=== PATIENT | male | born 1985 | race Caucasian/White ===

== ENCOUNTER 2017-03-27 23:55 | Emergency (ER) | payer BC ==
[2017-03-28 00:16] VITALS: RESP 18
[2017-03-28] MEDS ORDERED: DIPH,PERTUS(ACELL)TETVAC-LF 0.5 ML VIAL IM ONE (00:36)
[2017-03-28] MEDS ORDERED: AMOXIC-POT CLAV 875-125MG 1 EACH TAB PO STA (00:38)
--- NOTE | 2017-03-28 00:41 | ED ---
Animal Bite HPI - General Chief Complaint: Animal Bite Stated Complaint: dog bite Time Seen by Provider: 03/28/17 00:09 Source: patient, RN notes reviewed Mode of arrival: ambulatory Limitations: no limitations - History of Present Illness Initial Comments: Patient is a 31-year-old male presents emergency room for evaluation of dog bite. Patient states he has 2 dogs and was trying to break them up from fighting. Patient states he got in the middle and one of them bit his left hand. Patient states he has a laceration on his fourth finger and a few puncture bites over his hand. Patient states he's not sure when his last tetanus vaccine was. Patient denies any ALLERGIES to any antibiotics. Patient denies numbness or tingling in his fingers. Patient denies taking blood thinners. Patient denies any other injuries during incident. Patient states that his dogs are up-to-date on the rabies vaccine. - Related Data Previous Rx's Medication Instructions Recorded Amoxicillin/Potassium Clav 1 each PO Q12HR #20 tab 03/28/17 [Augmentin 875-125 Tablet] Allergies Allergy/AdvReac Type Severity Reaction Status Date / Time No Known Allergies Allergy Verified 03/28/17 00:10 Review of Systems ROS Statement: Those systems with pertinent positive or pertinent negative responses have been documented in the HPI. ROS Other: All systems not noted in ROS Statement are negative. Past Medical History Past Medical History: No Reported History History of Any Multi-Drug Resistant Organisms: None Reported Past Surgical History: Orthopedic Surgery Additional Past Surgical History / Comment(s): Left knee surgery Past Psychological History: No Psychological Hx Reported Smoking Status: Former smoker Past Alcohol Use History: None Reported Past Drug Use History: None Reported General Exam - General Exam Comments Initial Comments: Sitting in exam room, no acute distress. Limitations: no limitations General appearance: alert, in no apparent distress Head exam: Present: atraumatic, normocephalic, normal inspection Eye exam: Present: normal appearance ENT exam: Present: normal exam Neck exam: Present: normal inspection Respiratory exam: Present: normal lung sounds bilaterally. Absent: respiratory distress Cardiovascular Exam: Present: regular rate, normal rhythm, normal heart sounds Left Hand Wrist exam: Present: full ROM, laceration ( 2 cm laceration over the dorsal proximal phalanx of the fourth finger. Multiple puncture wounds over the left hand.). Absent: tenderness Neuro motor exam: Present: wrist extension intact, thumb opposition intact, thumb IP flexion intact, thumb adduction intact, fingers 2-5 abduction intact Vascular: Present: normal capillary refill ( capillary refill less than 2 seconds), radial pulse (2+), ulnar pulse (2+) Back exam: Present: normal inspection Neurological exam: Present: alert, oriented X3, CN II-XII intact, normal gait Psychiatric exam: Present: normal affect, normal mood Skin exam: Present: warm, dry. Absent: rash Course Vital Signs 03/28/17 03/28/17 00:08 01:53 Temperature 98.1 F 97.9 F Pulse Rate 74 81 Respiratory 18 18 Rate Blood Pressure 128/72 132/69 O2 Sat by Pulse 98 98 Oximetry Procedures - Laceration Laceration #1 Consent Obtained: verbal consent Indication: laceration Site: other (left fourth digit) Size (cm): 2 Description: linear Depth: simple, single layer Anesthetic Used: lidocaine 1% Anesthesia Technique: local infiltration Amount (mls): 2 Pre-repair: irrigated extensively Type of Sutures: nylon Size of Sutures: 5-0 Number of Sutures: 2 Technique: simple, interrupted Patient Tolerated Procedure: well, no complications Medical Decision Making - Medical Decision Making patient is a 31-year-old male since emergency room for evaluation of dog bite. Patient did have a 2 cm laceration over her left fourth proximal phalanx. Laceration was open. I did loosely close laceration with 2 sutures. I did explain to patient a high probability of increased infection. Patient was updated on his tetanus vaccine and placed on Augmentin. Advised patient to return for any worsening symptoms or swelling from the laceration site. Patient states he understands everything that was discussed with him. Case discussed with Dr. Crespo. Disposition Clinical Impression: Dog bite Disposition: HOME SELF-CARE Condition: Good Instructions: Animal Bite (ED), Care For Your Stitches (ED), Laceration (ED) Additional Instructions: Keep suture area clean and dry. Please return for any signs of infection or drainage from the suture area. Take antibiotics as directed. Take Tylenol or Motrin as needed for pain. Please follow-up with primary care provider for reevaluation on Wednesday. Please return in 7 days for suture removal. Prescriptions: Amoxicillin/Potassium Clav [Augmentin 875-125 Tablet] 1 each PO Q12HR #20 tab Referrals: Dwight Basurto DO [Primary Care Provider] - 1-2 days Time of Disposition: 01:12
[2017-03-28 01:54] VITALS: BP 132/69; PULSE 81; TEMP 97.9
== END 2017-03-28 01:54 | disposition home or self-care (01) ==
LOC: EC 23:55
DX: S61.215A Laceration without foreign body of left ring finger without damage to nail, initial encounter (principal); Z23 Encounter for immunization; Z87.891 Personal history of nicotine dependence; W54.0XXA Bitten by dog, initial encounter
CPT/HCPCS: 12001; 90471; 90715; 99282

== ENCOUNTER → 2017-03-29 | Outpatient (CLI) | payer BC ==
--- NOTE | 2017-03-30 10:51 | XR ---
Left hand HISTORY: Swelling after dog bite 3 views of the left hand, no comparisons Bone mineralization, joint spaces and alignment are maintained. Small metallic density is present at the thenar eminence level on the frontal view measuring only 1 to 2 mm. Difficult to exclude a radiop aque foreign body. Soft tissue swelling is suspected. IMPRESSION: No fracture or dislocation. Correlate for cellulitis, abscess, difficult to exclude a sma ll foreign body as described. Consider follow-up to exclude artifact.
== END | disposition home or self-care (01) ==
LOC: RADXRYALE 15:09
PROVIDERS: ATTEND Physician Assistant Medical
DX: S61.259A Open bite of unspecified finger without damage to nail, initial encounter (principal); W54.0XXA Bitten by dog, initial encounter; L03.114 Cellulitis of left upper limb

== ENCOUNTER → 2017-06-10 | Outpatient (CLI) | payer BC ==
--- NOTE | 2017-06-10 13:19 | MR ---
EXAMINATION TYPE: MR foot RT wo con DATE OF EXAM: 06/10/2017 COMPARISON: NONE HISTORY: Lateral rt foot pain x 7 months, Injury when the patient twisted his ankle. Standard multiplanar, multisequence MRI departmental protocol Multiplanar, multisequence images of the right foot were acquired. Diffusion weighted imaging was per formed. FINDINGS: There is a short segment split tear of the peroneus brevis beginning just below the fibula and extend ing approximately 1.5 cm. Just distal to this there is a focal area of thickening and intermediate si gnal within the peroneus longus measuring 1.5 cm in length with minimal amount of peritendinous fluid . The anterior talofibular ligament and posterior talofibular ligament as well as the deltoid ligament appear intact. Calcaneofibular ligament is also intact as is the Lisfranc ligament. There is no abnormal bone marrow signal to suggest osseous contusion or occult fracture. The sinus ta rsi maintains a normal fatty signal. The talar dome is intact. Ankle mortise is maintained. IMPRESSION: 1. Short segment split tear of the right peroneus brevis. 2. Focal tenosynovitis of the right peroneus longus just distal to the tear of the peroneus brevis. 3. No abnormal bone marrow signal to suggest occult fracture.
== END | disposition home or self-care (01) ==
LOC: RADMRIMAIN 12:04
PROVIDERS: ATTEND Physician Assistant Medical
DX: S86.321A Laceration of muscle(s) and tendon(s) of peroneal muscle group at lower leg level, right leg, initial encounter (principal); M65.861 Other synovitis and tenosynovitis, right lower leg; M79.671 Pain in right foot

== ENCOUNTER 2019-03-02 13:45 | Emergency (ER) | payer BC, OTHER ==
[2019-03-02 14:13] VITALS: BP 137/85; RESP 18; TEMP 98.1
[2019-03-02] MEDS ORDERED: LIDOCAINE 1% INJ 10MG/ML (20 ML MDV) SQ STA (14:45)
[2019-03-02] MEDS ORDERED: DIPH,PERTUS(ACELL)TETVAC-LF 0.5 ML VIAL IM ONE (14:46)
--- NOTE | 2019-03-02 14:47 | ED ---
General Adult HPI - General Chief complaint: Head Injury Stated complaint: head injury-[facility] Time Seen by Provider: 03/02/19 14:15 Source: patient, RN notes reviewed, old records reviewed Mode of arrival: ambulatory Limitations: no limitations - History of Present Illness Initial comments: 33-year-old male patient with no pertinent past medical history presents to ED after sustaining a laceration on the scalp. Patient reports that while at work he hit his head on a piece of exposed metal, causing laceration. Patient denies any use of blood thinners. Patient has a loss of consciousness. Patient denies any headache, changes in vision, altered mental status. Patient denies any pain in cervical spine. Patient denies other complaints. Systemic: Pt denies fatigue, myalgia, fever/chills, rash. Pt denies weakness, night sweats, weight loss. Neuro: Pt denies headache, visual disturbances, syncope or pre-syncope. HEENT: Pt denies ocular discharge or irritation, otalgia, rhinorrhea, pharyngitis or notable lymphadenopathy. Cardiopulmonary: Pt denies chest pain, SOB, heart palpitations, dyspnea on exertion. Abdominal/GI: Pt denies abdominal pain, n/v/d. : Pt denies dysuria, burning w/ urination, frequency/urgency. Denies new onset urinary or bowel incontinence. MSK: Pt denies myalgia, loss of strength or function in extremities. Neuro: Pt denies new onset weakness, paresthesias. - Related Data Previous Rx's Medication Instructions Recorded Amoxicillin/Potassium Clav 1 each PO Q12HR #20 tab 03/28/17 [Augmentin 875-125 Tablet] Allergies Allergy/AdvReac Type Severity Reaction Status Date / Time No Known Allergies Allergy Verified 03/02/19 14:13 Review of Systems ROS Statement: Those systems with pertinent positive or pertinent negative responses have been documented in the HPI. ROS Other: All systems not noted in ROS Statement are negative. Past Medical History Past Medical History: No Reported History History of Any Multi-Drug Resistant Organisms: None Reported Past Surgical History: Orthopedic Surgery Additional Past Surgical History / Comment(s): Left knee surgery Past Psychological History: No Psychological Hx Reported Smoking Status: Former smoker Past Alcohol Use History: None Reported Past Drug Use History: None Reported General Exam - General Exam Comments Initial Comments: Constitutional: NAD, AOX3, Pt has pleasant affect. HEENT: NC/AT, trachea midline, neck supple, no lymphadenopathy. Posterior pharynx non erythematous, without exudates. External ears appear normal, without discharge. Mucous membranes moist. Eyes PERRLA, EOM intact. There is no scleral icterus. No pallor noted. Cardiopulmonary: RRR, no murmurs, rubs or gallops, no JVD noted. Lungs CTAB in anterior and posterior wilkerson. No peripheral edema. Abdominal exam: Abdomen soft and non-distended. Abdomen non-tender to palpation in all 4 quadrants. Bowel sounds active in LLQ. No hepatosplenomegaly. No ecchymosis Neuro: CN II-XII intact. No nuchal rigidity. MSK: 6cm laceration noted at apex of skull. Vigorously irrigated with 1 L normal saline. No osseous involvement, no foreign body. Approximated with 10 simple meera. No posterior calf tenderness bilaterally, homans sign negative bilaterally. Posterior tibialis and radial pulse +2 bilaterally. Sensation intact in upper and lower extremities. Full active ROM in upper and lower extremities, 5/5 stregnth. Limitations: no limitations Course Vital Signs 03/02/19 14:10 Temperature 98.1 F Pulse Rate 89 Respiratory 18 Rate Blood Pressure 137/85 O2 Sat by Pulse 97 Oximetry Procedures - Laceration Laceration #1 Consent Obtained: verbal consent Indication: laceration Site: scalp Size (cm): 6 Description: linear Depth: simple, single layer Anesthetic Used: lidocaine 1% Anesthesia Technique: local infiltration Amount (mls): 6 Pre-repair: wound explored, irrigated extensively (1L NS ), deep structures intact (no osseous involvement or foreign body ) Type of Sutures: other (staple) Number of Sutures: 10 Patient Tolerated Procedure: well, no complications Medical Decision Making - Medical Decision Making 33-year-old male patient with no pertinent past medical history presents to ED after sustaining a laceration on the scalp. Patient reports that while at work he hit his head on a piece of exposed metal, causing laceration. Patient denies any use of blood thinners. Patient has a loss of consciousness. Patient denies any headache, changes in vision, altered mental status. Patient denies any pain in cervical spine. Patient denies other complaints. Pt VSS, afebrile. Physical exam displayed: 6cm laceration noted at apex of skull. Vigorously irrigated with 1 L normal saline. No osseous involvement, no foreign body. Approximated with 10 meera. Patient tetanus updated. Patient monitor for signs symptoms of infection. Pt will return in 7 days for removal. Patient will return to ER if condition worsens in anyawy. Case discussed with Dr. Godfrey. Disposition Clinical Impression: Laceration Disposition: HOME SELF-CARE Condition: Stable Instructions (If sedation given, give patient instructions): Laceration (ED) Additional Instructions: Patient to adhere to previously discussed treatment plan and will take medication(s) as directed. Patient to follow up with PCP in 1-2 days. Patient to return to ED if symptoms do not improve. Please return for suture removal: Hand: 7-10 days Face: 5 days Chest/abdomen: 12-14 days Extremities: 7-10 days Scalp: 7 days Eyebrow: 5-7 days Foot/sole: 12-14 days Please monitor for signs and symptoms of infection including: redness, warmth, drainage, discharge. Please return to ED if these signs or symptoms occur, new signs or symptoms develop or if condition worsens in anyway. Is patient prescribed a controlled substance at d/c from ED?: No Referrals: Dwight Basurto DO [Primary Care Provider] - 1-2 days
[2019-03-02 15:45] VITALS: PULSE 78
== END 2019-03-02 15:42 | disposition home or self-care (01) ==
LOC: EC 13:45
DX: S01.01XA Laceration without foreign body of scalp, initial encounter (principal); Z23 Encounter for immunization; Z87.891 Personal history of nicotine dependence; W22.8XXA Striking against or struck by other objects, initial encounter; Y92.69 Other specified industrial and construction area as the place of occurrence of the external cause; Y99.0 Civilian activity done for income or pay
CPT/HCPCS: 90715; 99283; 12002; 90471; J2001

== ENCOUNTER → 2019-05-31 | Outpatient (CLI) | payer OTHER ==
--- NOTE | 2019-06-01 07:18 | XR ---
EXAMINATION TYPE: XR finger RT DATE OF EXAM: 05/31/2019 COMPARISON: NONE HISTORY: Right thumb pain and cellulitis after injury. TECHNIQUE: 2 views of the right thumb are obtained. FINDINGS: No laceration of the right thumb/first digit seen. No radiopaque foreign body. Mild soft ti ssue swelling distally. Osseous mineralization is within normal limits. No dislocation. IMPRESSION: Mild soft tissue swelling of the distal right first digit/thumb without radiopaque foreig n body, osseous laceration, nor acute fracture or dislocation.
== END | disposition home or self-care (01) ==
LOC: RADXRYALE 16:13
PROVIDERS: ATTEND Physician Assistant Medical
DX: L03.113 Cellulitis of right upper limb (principal)

== ENCOUNTER → 2019-11-22 | Outpatient (CLI) | payer MEDICAID ==
[2019-11-22 16:06] LABS: T4, Free (Free Thyroxine) 1.1 ng/dL (0.80-1.80)
[2019-11-22 18:03] LABS: Thyroid Peroxidase Antibodies 31.5 U/mL (0.0-60.0)
== END | disposition home or self-care (01) ==
LOC: LABWHC1 08:56
PROVIDERS: ATTEND Internal Medicine Endocrinology, Diabetes & Metabolism
DX: E06.3 Autoimmune thyroiditis (principal)
CPT/HCPCS: 36415; 84439; 84443; 86376; 86800

== ENCOUNTER 2020-08-02 09:48 | Day surgery (SDC) | payer MEDICAID ==
[2020-07-31 15:07] VITALS: BMI 48.8
--- NOTE | 2020-08-01 10:56 | HP ---
HISTORY AND PHYSICAL CHIEF COMPLAINT: Left hand pain and numbness. 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 It has worsened recently. He is having a difficult time with gripping and grasping. He is having significant night symptoms. He has tried bracing and injections along with medications over the past several years. PAST MEDICAL HISTORY: Significant for hypertension. PAST SURGICAL HISTORY: Negative. CURRENT MEDICATIONS: Losartan. FAMILY HISTORY: Significant cancer, diabetes, and diabetes. SOCIAL HISTORY: Significant for previous tobacco use; however, he quit in 2008. 16 POINT REVIEW OF SYSTEMS: Otherwise reviewed and is noncontributory. PHYSICAL EXAMINATION: On examination, the patient is approximately 5 foot 11, 350 pounds of endomorphic habitus. HEENT: Exam is nonfocal. NECK: Supple. He is nontender about the left shoulder and elbow. On examination of his left wrist he has a positive carpal tunnel compression test. Tinel's is positive over the carpal canal. Adductor pollicis brevis strength 4+/5. Light touch is distally intact. Intrinsics are 5/5. EMG report left upper extremity shows median motor latency at the carpal canal 5.3, sensory latency non recordable. IMPRESSION: Left carpal tunnel [id number]. RECOMMENDATIONS: I talked to the patient at length regarding his condition along with treatment options. At this point, he is quite symptomatic despite extensive previous conservative measures. After thorough discussion, he opts to proceed with surgery. We will plan to proceed with left carpal tunnel release utilizing local anesthetic and IV sedation as an outpatient procedure. Risks and benefits were discussed at length in layman's terms. MMODL / IJN: [id number] /
[~2020-08-02 09:48] MED LIST: DEXAMETHASONE SOD PHOSPHATE 10 MG/ML 1 ML VIAL IV ONE; HYDROmorphone 0.5 MG/0.5 ML SYRINGE IVP PRN; LACTATED RINGERS 1,000 ML IV SCH; LIDOCAINE 1% (10MG/ML) FOR IV START INTRADERMA PRN; MIDAZOLAM 2 MG/2 ML VIAL IV PRN; ONDANSETRON 4 MG/2 ML VIAL IVP ONE; ceFAZolin 3 GM in SODIUM CHLORIDE 0.9% 100 ML IVPB ONE
[2020-08-02 10:37] VITALS: RESP 16; TEMP 98.2
[2020-08-02] MEDS ORDERED: BUPIVACAINE (PF) 0.25% 30 ML VIAL SQ ONE (11:21)
--- NOTE | 2020-08-02 11:51 | P.OP ---
Date of Procedure: 08/02/20 Preoperative Diagnosis: Left carpal tunnel syndrome Postoperative Diagnosis: Same Procedure(s) Performed: Left carpal tunnel release Anesthesia: MAC, local Surgeon: Robert Rahman Estimated Blood Loss (ml): 1 Pathology: none sent Condition: stable Disposition: PACU Indications for Procedure: The patient's a 34-year-old male who presents with progressive left hand pain and numbness secondary to carpal tunnel syndrome despite conservative measures. A discussion of the risks and benefits of operative intervention versus continued conservative measures was made with patient. He opted to proceed with surgery. Operative risks to include infection, neurovascular injury, develo pment of blood clots, possible incomplete resolution of symptoms, possible recurrence of symptoms and need for subsequent procedures was discussed. Informed consent was obtained. Operative Findings: As below Description of Procedure: The patient was brought to the operating room, and after induction of IV sedation the left upper extremity was prepped and draped in normal fashion. The proposed incision site was outlined skin marker in line with the radial aspect the fourth ray extending from the volar wrist crease distally 2-1/2 cm. One quarter percent plain Marcaine was injected into the proposed incision site. 9 mL was utilized. The tourniquet was inflated to 250 mmHg. The skin incision was then made. The skin was incised sharply. Subcutaneous tissues were divided sharply the superficial palmar fascia was identified and split in line with the skin incision. The transverse carpal ligament was identified and transected u nder direct visualization distally to level the palmar fat pad. Proximal was taken level of the volar wrist crease. A plane above and below the transverse carpal ligament was then bluntly developed with tenotomies. The confluence of the distal forearm fascia and the transverse carpal ligament was then transected under direct visualization proximally with the tines pointed in the ulnar direction. I felt this was adequate proximal release. Neural lysis was not performed. The wound was irrigated with normal saline. Electrocautery was used for hemostasis. The skin was reapproximated with simple 3-0 nylon sutures. A sterile dressing was applied. The tourniquet was deflated with less than 15 minutes total tourniquet time. Patient was awoken from sedation and transferred to the recovery room in good condition. Blood loss was estimated 1 mL. No complications were incurred. Sponge and needle counts were correct at the end the case.
[2020-08-02 12:21] VITALS: BP 108/70; PULSE 68
== END 2020-08-02 12:24 | disposition home or self-care (01) ==
LOC: OR 09:48
PROVIDERS: ATTEND Orthopaedic Surgery
DX: G56.02 Carpal tunnel syndrome, left upper limb (principal); I10 Essential (primary) hypertension; Z87.891 Personal history of nicotine dependence; Z80.9 Family history of malignant neoplasm, unspecified; Z83.3 Family history of diabetes mellitus; Z98.890 Other specified postprocedural states; Z79.899 Other long term (current) drug therapy
CPT/HCPCS: 64721; J1100; J0690; J2405

== ENCOUNTER 2020-09-20 10:13 | Day surgery (SDC) | payer MEDICAID ==
[2020-09-19 08:25] VITALS: BMI 47.4
--- NOTE | 2020-09-19 09:17 | HP ---
HISTORY AND PHYSICAL CHIEF COMPLAINT: Right hand pain and numbness. 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 It has worsened recently. He is having significant night symptoms. He has tried bracing and injections along with medications. PAST MEDICAL HISTORY: Significant for hypertension. PAST SURGICAL HISTORY: Significant for recent left carpal tunnel release. CURRENT MEDICATIONS: Losartan. He denies drug allergies. FAMILY HISTORY: Significant for cancer and diabetes. SOCIAL HISTORY: Significant for previous tobacco use. 16 POINT REVIEW OF SYSTEMS: Otherwise reviewed and is noncontributory. PHYSICAL EXAMINATION: On examination, the patient is approximately 5 foot 11, 350 pounds of endomorphic habitus. HEENT: Exam is nonfocal. NECK: Supple. He is nontender about the right shoulder and elbow. On examination of his right wrist, he has a positive Tinel's over the carpal canal. Adductor pollicis brevis strength is 5/5. No significant thenar wasting is noted. Carpal tunnel compression test is positive. EMG report right upper extremity shows evidence of right median motor latency of the carpal canal 4.3. IMPRESSION: Right carpal tunnel syndrome-symptomatic. RECOMMENDATIONS: I talked to the patient at length regarding his condition and treatment options. At this point, he remained symptomatic despite extensive previous conservative measures. After thorough discussion, he opts to proceed with surgery. We will plan to proceed with right carpal tunnel release utilizing local anesthetic and IV sedation as an outpatient procedure. Risks and benefits were discussed at length in layman's terms. MMODL / IJN: [id number] /
[~2020-09-20 10:13] MED LIST changes: -DEXAMETHASONE SOD PHOSPHATE 10 MG/ML 1 ML VIAL IV ONE; +DEXAMETHASONE SOD PHOSPHATE 4 MG/ML 1 ML VIAL IV ONE; -MIDAZOLAM 2 MG/2 ML VIAL IV PRN; -ONDANSETRON 4 MG/2 ML VIAL IVP ONE
[2020-09-20] MEDS ORDERED: LACTATED RINGERS 1,000 ML IV ONE ×2 (10:28)
[2020-09-20] MEDS ORDERED: ONDANSETRON 4 MG/2 ML VIAL ONE (10:38)
[2020-09-20 10:40] VITALS: TEMP 98.2
[2020-09-20] MEDS ORDERED: ONDANSETRON 4 MG/2 ML VIAL IVP ONE (10:40)
[2020-09-20] MEDS ORDERED: fentaNYL (PF) 50 MCG/ML 2 ML AMP ONE (10:56)
[2020-09-20] MEDS ORDERED: MIDAZOLAM 2 MG/2 ML VIAL ONE (10:56)
[2020-09-20] MEDS ORDERED: KETAMINE 10 MG/ML 20 ML VIAL ONE (10:56)
[2020-09-20] MEDS ORDERED: GLYCOPYRROLATE 0.2 MG/ML 2 ML VIAL ONE (10:56)
[2020-09-20] MEDS ORDERED: PROPOFOL 10 MG/ML 20 ML VIAL IV ONE (10:56)
[2020-09-20] MEDS ORDERED: BUPIVACAINE (PF) 0.25% 30 ML VIAL SQ ONE ×3 (11:10→11:11)
--- NOTE | 2020-09-20 11:33 | P.OP ---
Date of Procedure: 09/20/20 Preoperative Diagnosis: Right carpal tunnel syndromesymptomatic Postoperative Diagnosis: Same Procedure(s) Performed: Right carpal tunnel release Anesthesia: MAC, local Surgeon: Robert Rahman Estimated Blood Loss (ml): 2 Pathology: none sent Condition: stable Disposition: PACU Indications for Procedure: The patient is a 34-year-old male who presents progressive right hand pain and numbness secondary to carpal tunnel syndrome this right conservative measures. A discussion of the risks and benefits of operative intervention versus continued conservative measures was made with patient. He opted to proceed with surgery. Operative risks to include infection, neurovascular injury, possible development of reflex sympathetic dystrophy, possible recurrence, possible need for subsequent procedures was discussed. Informed consent was obtained. Operative Findings: As below Description of Procedure: The patient was brought to the operating room, and after induction of IV sedation the right upper extremity was prepped and draped in normal fashion. The proposed incision site was outlined skin marker in line with the radial aspect the fourth ray extending from the volar wrist crease distally 2-1/2 cm. One quarter percent plain Marcaine was injected into the proposed incision site. 9 mL was utilized. The tourniquet was inflated to 250 mmHg. The skin incision was then made. The skin was incised sharply. Subcutaneous tissues were divided sharply the superficial palmar fascia was identified and split in line with the skin incision. The transverse carpal ligament was identified and transected under direct visualization distally to level the palmar fat pad. Proximal was taken level of the volar wrist crease. A plane above and below the transverse carpal ligament was then bluntly developed with tenotomies. The confluence of the distal forearm fascia and the transverse carpal ligament was then transected under direct visualization proximally with the tines pointed in the ulnar direction. I felt this was adequate proximal release. Neural lysis was not performed. The wound was irrigated with normal saline. Electrocautery was used for hemostasis. The skin was reapproximated with simple 3-0 nylon sutures. A sterile dressing was applied. The tourniquet was deflated with less than 15 minutes total tourniquet time. Patient was awoken from sedation and transferred to the recovery room in good condition. Blood loss was estimated 2 mL. No complications were incurred. Sponge and needle counts were correct at the end the case.
[2020-09-20 11:56] VITALS: BP 129/71; PULSE 69; RESP 16
== END 2020-09-20 12:10 | disposition home or self-care (01) ==
LOC: OR 10:13
PROVIDERS: ATTEND Orthopaedic Surgery
DX: G56.01 Carpal tunnel syndrome, right upper limb (principal); I10 Essential (primary) hypertension; K51.90 Ulcerative colitis, unspecified, without complications; K76.0 Fatty (change of) liver, not elsewhere classified; E66.9 Obesity, unspecified; Z68.42 Body mass index [BMI] 45.0-49.9, adult; Z83.3 Family history of diabetes mellitus; Z80.9 Family history of malignant neoplasm, unspecified; Z79.899 Other long term (current) drug therapy
CPT/HCPCS: 64721; J2250; J1100; J0690; J2405; J3010; J2704

== ENCOUNTER → 2023-04-01 | Outpatient (CLI) | payer OTHER ==
--- NOTE | 2023-04-02 06:24 | XR ---
EXAMINATION TYPE: XR abdomen 1V DATE OF EXAM: 04/01/2023 4:29 PM CLINICAL HISTORY: Lower abdominal pain and dysuria. TECHNIQUE: Two supine KUB images of the abdomen are obtained. COMPARISON: None. FINDINGS: Exam suboptimal as entire abdomen and pelvis are not included. Scattered gas is seen in non -distended small and large bowel loops. Splenomegaly is suspected. No suspicious calcifications. The visualized lung bases are clear and the osseous structures are intact. IMPRESSION: Overall nonobstructive bowel gas pattern.
== END | disposition home or self-care (01) ==
LOC: RADXRYALE 16:06
PROVIDERS: ATTEND Physician Assistant
DX: R30.0 Dysuria (principal); R10.30 Lower abdominal pain, unspecified
CPT/HCPCS: 74018